=== PATIENT | male | born 1995 | race American Indian/Alaskan Native ===

== ENCOUNTER 2018-09-11 15:12 | Emergency (ER) | payer SELFPAY ==
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
--- NOTE | 2018-09-11 17:38 | Cat Scan Report ---
PROCEDURE: CT HEAD/BRAIN WO CON TECHNIQUE: CT examination of the head without IV contrast HISTORY: swelling to left frontal COMPARISONS: None FINDINGS: Focal (scalp swelling appears to contain homogeneous fatty tissue and may reflect of a subgaleal lipo ma. Transverse size approximately 7 x 18 mm. Superior and lateral to this lesion is slight scalp swel ling possibly representing small thin scalp hematoma if there is history of trauma. Adjacent skull is intact without evidence of fracture. No acute air-fluid level visualized in the included air-filled sinuses. Bone windows demonstrate no acute fracture. The brain is without mass, mass effect, hemorrhage, or acute infarct. There is no extra-axial intracranial bleed, brain bleed, or midline shift. The ventricles and sulci are age-appropriate. IMPRESSION: No acute CVA, intracranial bleed, or brain mass Small fatty lesion suggestive of lipoma left inferomedial frontal scalp Nonspecific left superior lateral slight scalp swelling may reflect hematoma if there is a history of trauma This document is electronically signed by Arie Levine MD., September 11 2018 05:36:25 PM ET
[2018-09-11] MEDS ORDERED: ZOFRAN ODT PO ONE (18:30)
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
[2018-09-11] MEDS ORDERED: MOTRIN PO ONE ×2 (19:16)
[2018-09-11] MEDS ORDERED: NACL 0.9% 1000 ML 1,000 ML IV ONE (20:25)
[2018-09-11] MEDS ORDERED: NACL 0.9% 1000 ML 1,000 ML ONE (20:27)
[2018-09-11 21:45] VITALS: BP 138/90
== END 2018-09-11 21:45 | disposition home or self-care (01) ==
LOC: ED 15:12
DX: S00.93XA Contusion of unspecified part of head, initial encounter (principal); W22.8XXA Striking against or struck by other objects, initial encounter; Y93.89 Activity, other specified; Y92.89 Other specified places as the place of occurrence of the external cause; Y99.8 Other external cause status
CPT/HCPCS: 70450; 96360; 99284; J7030; Q0162